=== PATIENT | female | born 1950 | race Caucasian/White ===

== ENCOUNTER → 2024-05-26 12:03 | Outpatient (REF) | payer OTHER, SELFPAY | LOC: WDC 12:03 | PROVIDERS: ATTENDING PHYSICIAN Obstetrics & Gynecology Gynecology; FAMILY PHYSICIAN Family Medicine | DX: Z12.31 Encounter for screening mammogram for malignant neoplasm of breast (principal); Z12.39 Encounter for other screening for malignant neoplasm of breast | CPT/HCPCS: 77063; 77067 ==

== ENCOUNTER 2024-06-19 01:41 | Emergency (ER) | payer OTHER, SELFPAY ==
[2024-06-19 01:44] VITALS: BP 188/86
[2024-06-19] MEDS: ZOFRAN 4 MG IV ×2 (02:02→03:36)
[2024-06-19] MEDS: DILAUDID 0.5 MG IV (02:02)
[2024-06-19] MEDS: NSS 500 IV ×2 (02:04→04:23)
--- NOTE | 2024-06-19 02:04 | ED.GENMED ---
History of Present Illness
General
Chief Complaint: Flank Pain
Source: patient and previous hospital records (Previous ED visit May 2021 for similar complaint at that time right flank pain related to right ureteric stone.)
Exam Limitations: none
Time Seen by Provider: 06/19/24 01:54
Nursing documentation reviewed up to this point in time: agreed with
History of Present Illness
History of Present Illness:
This is a 73-year-old woman who has history of kidney stones requiring lithotripsy 2022, 2008 and again 2015. She follows sporadically with Dr. Nicole. She complains of somewhat abrupt onset of moderate to severe left flank pain that began
around 10 PM tonight accompanied with nausea, intermittent episodes of vomiting. Left flank pain radiates to her left lower quadrant and feels very similar to previous episodes of renal colic.
Prior to tonight her last episode of renal colic was on the right side May 2021. Evaluated in this ED at that time, discharged home and passed the stone uneventfully. Prior to 2020, she encountered a left ureteric stone, was scheduled for
ureteroscopy and stone extraction but no stone noted on fluoroscopy and surgical case was canceled.
She denies fevers or chills, no dysuria urgency or hematuria. She denies diarrhea or constipation. She has not taken anything for discomfort.
Past History
Past History
ED Past Medical History: Other (Kidney stones; Migraine headaches, sciatica)
ED Past Surgical History: Cholecystectomy, Orthopedic (Right total hip replacement) and Urological (Lithotripsy 2002, 2008, 2015)
Social History
Tobacco: Non-smoker
Alcohol: Occasional
Drug: None
Personal:
Living: with family
Employment: Retired
Family History
Family History: Other (Noncontributory)
Phy Exam
Physical Exam
Physical Exam:
GENERAL: 73-year-old female appears her stated age, awake and alert, appears in moderate distress related to pain. Easily communicative. is accompanying.
EYE: anicteric
NECK: Supple, nontender, no meningismus, no significant adenopathy.
ENT: oral mucosa is moist. No rhinorrhea.
CARDIAC: Regular rate and rhythm. no murmur.
LUNGS: Clear breath sounds bilaterally, no acute respiratory distress, no wheezes/rales/rhonchi
ABDOMEN: Soft, nondistended, without focal tenderness, no r/g, moderate left CVA tenderness with percussion, normoactive BS.
NEUROLOGICAL: Alert and oriented x3, no focal neuro deficits. Gait is steady.
SKIN: Warm and dry, normal color, skin intact. No rash.
MUSCULOSKELETAL: No C/C/E. peripheral pulses are full and equal b/l. No palpable tenderness.
PSYCH: Normal and appropriate interaction.
Course
Orders/Labs/Results
Orders:
Orders
06/19/24 01:57
CT Abd/pel Without Iv Or Oral Urgent
Comment:
Reason For Exam: acute L flank pain w N/V
0.9% Sodium Chloride 500 ml [Nss] 500 ml IV BOLUS
HYDROmorphone [Dilaudid] 0.5 mg IV NOW STA
Ondansetron Injectable [Zofran] 4 mg IV NOW STA
06/19/24 02:01
Complete Blood Count/With Diff Urgent
Comprehensive Metabolic Panel Urgent
06/19/24 03:07
Electrocardiogram (*1) Urgent
Reason for Study: Chest Pain
EKG- Treatment ONCE
06/19/24 03:17
Mag Hydrox/Al Hydrox/Simeth [Maalox] 30 ml Phenobarb/Hyoscy/Atropine/Scop [] 10 ml Viscous Lidocaine 2% [Xylocaine Viscous Cup] 10 ml PO NOW
06/19/24 03:25
Mag Hydrox/Al Hydrox/Simeth [Maalox] 30 ml .ROUTE .STK-MED ONE
Phenobarb/Hyoscy/Atropine/Scop [] 10 ml .ROUTE .STK-MED ONE
Viscous Lidocaine 2% [Xylocaine Viscous Cup] 15 ml .ROUTE .STK-MED ONE
06/19/24 03:33
Ondansetron Injectable [Zofran] 4 mg .ROUTE .STK-MED ONE
Pantoprazole [Protonix IV] 40 mg .ROUTE .STK-MED ONE
06/19/24 03:35
Ondansetron Injectable [Zofran] 4 mg IV NOW STA
Pantoprazole [Protonix IV] 40 mg IV NOW STA
06/19/24 03:41
Ketorolac [Toradol] 15 mg .ROUTE .STK-MED ONE
06/19/24 03:42
Ketorolac [Toradol] 15 mg IV NOW STA
06/19/24 04:23
0.9% Sodium Chloride 500 ml [Nss] 500 ml IV BOLUS
06/19/24 05:41
Urinalysis Reflex To Culture Urgent
Date Specimen was Collected: 06/19/24
Time Specimen was Collected: 05:32
Urine Microscopic Reflex Cult Urgent
Urine Culture Urgent
LILA Source: U
Specimen Description:
Date Specimen was Collected: 06/19/24
Time Specimen was Collected: 05:32
Abnormal Lab Results
06/19/24 06/19/24
02:01 05:41
WBC 13.0 H 10^3/uL
(4.8-10.8)
Hct 36.7 L %
(37.0-47.0)
Abs Immat Gran (auto) 0.1 H 10^3/uL
(0-0.05)
Absolute Neuts (auto) 8.8 H 10^3/uL
(1.4-6.5)
Absolute Monos (auto) 0.9 H 10^3/uL
(0.1-0.6)
BUN 20 H mg/dl
(7-17)
Glucose 132 H mg/dl
(70-99)
Ur Occult Blood Reflex Trace A
(Negative)
Leukocyte Esterase Rfl 2+ A
(Negative)
Urine Bacteria (Reflex) Few A
(Negative)
06/19/24 02:01
06/19/24 02:01
Vital Signs
Initial and Last Documented VS:
Initial Vital Signs
Temp Pulse Resp BP Pulse Ox
98.2 F 77 26 188/86 96
06/19/24 01:44 06/19/24 01:44 06/19/24 01:44 06/19/24 01:44 06/19/24 01:44
Last Documented Vital Signs
Temp Pulse Resp BP Pulse Ox
98.2 F 65 20 143/70 92
06/19/24 01:44 06/19/24 06:00 06/19/24 06:00 06/19/24 06:00 06/19/24 06:00
MDM/Problems Addressed
Differential Diagnosis Includes:
Concern for renal colic on the left/ureteric stone on the left.
Less likely musculoskeletal pain, bowel obstruction, constipation.
Other consideration is UTI, pyelonephritis.
Will medicate for pain and nausea, initiate IV fluids, will check labs, urinalysis and will check CT abdomen pelvis.
Chronic conditions affecting care: Kidney disease (History of kidney stones. Acute kidney injury with creatinine of 1.2 noted May 2021 likely related to obstructing stone. Prior to that normal renal function. No follow-up labs available.)
*Radiology
Radiology exam reviewed: radiology read reviewed
*Pulse Oximetry
Patient hypoxic: no
*EKG
Interpreted by ED Provider?: Yes
Interpretation: normal
Comparison EKG: no comparison EKG present
Rate: normal
Rhythm: sinus
[place]: normal axis
Interval: normal interval
QRS Pattern: normal QRS
Ischemia: no ischemia
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
Rate: normal
Interpretation: normal
Rhythm: sinus
*Critical Care Note
Total Time (30-74mins, 75-104mins- exclusive of procedures): Not Applicable
Update Note
Update Note:
06/19/2024 0320 AM
Patient has had mild to moderate relief of left flank pain, moderate relief of nausea. She now notes lower substernal chest pressure as well as intermittent hiccuping that I suspect is acid reflux in nature. EKG is unremarkable.
Will trial a GI cocktail and continue to observe.
06/19/2024 0654 AM
Patient manage comfortable and pain-free after IV dose of Toradol.
No further chest discomfort.
CAT scan shows 5 mm stone mid left ureter with moderate left hydronephrosis.
Labs show mildly elevated white blood cell count. Normal creatinine 0.7.
Urinalysis shows few bacteria but only 6-10 WBCs. She has had no UTI symptoms and remains afebrile.
Will hold off on antibiotic.
Will plan for discharge to home with prompt follow-up with urology for recheck.
Will prescribe oxycodone as well as oral Toradol for as needed pain and Zofran for as needed nausea/vomiting.
Discussed importance of staying well-hydrated on a daily basis.
Return precautions discussed.
ED Attending Note
-
Portions of this chart may have been created with voice recognition software.� Occasional wrong word or��sound alike� substitutions may have occurred due to the inherent limitations of voice recognition software.
Discharge Plan
Departure
Patient Disposition: Home (Routine Discharge)
Date of Disposition: 06/19/24
Time of Disposition: 06:55
Patient with high blood pressure during this ER visit?: No
Condition: Good
Discharge Problem:
mid left ureteric stone
Instructions: Kidney Stones (DC), Flank Pain (DC)
Prescriptions:
New
ketorolac 10 mg tablet
10 mg PO QID PRN (Reason: pain) Qty: 20 0RF
oxycodone-acetaminophen [Percocet] 5-325 mg Tablet
1 tab PO Q6HPRN PRN (Reason: pain) Qty: 8 0RF
ondansetron 4 mg tablet,disintegrating
4 mg PO QID PRN (Reason: nausea and vomiting) Qty: 20 0RF
No Action
naproxen 250 MG tablet
250 mg PO BID PRN (Reason: pain)
ondansetron [Zofran ODT] 8 MG tablet,disintegrating
8 mg PO Q8 PRN (Reason: nausea) Qty: 12 0RF
oxycodone 5 MG tablet
5 mg PO Q6HPRN PRN (Reason: severe pain) Qty: 15 0RF
Referrals:
Lamberto Dhillon Jr., DO [Family Provider] -
Triston Nicole MD [Active] - Call in 1-3 days for appt
Interventions
Interventions:
*General Assessment Last Done: 06/19/24 01:44
*Neglect/Abuse Screening Last Done: 06/19/24 01:44
ED- Fall Risk Assessment Last Done: 06/19/24 01:44
*ED COVID-19 Vaccine History Last Done: 06/19/24 01:44
OD-Seumjl-Kimjjrktqa Assessment Last Done: 06/19/24 02:00
ED-Female Genitourinary Assessment Last Done: 06/19/24 02:00
Discharge Date and Time
Print Language: ROMANSH
[2024-06-19 02:06] VITALS: BMI 31.4
[2024-06-19 02:07] VITALS: BP 161/65
[2024-06-19 02:11] LABS: % Basophils 0.5 % (0-2); % Eosinophils 0.8 % (0-6); % Immature Granulocytes 0.5 % (0-0.5); % Lymphocytes 23.3 % (20.5-51.1); % Neutrophils 67.9 % (42.2-75.2); Absolute Basophils 0.1 10^3/uL (0-0.2); Absolute Eosinophils 0.1 10^3/uL (0-0.7); Absolute Immature Granulocytes 0.1 10^3/uL (0-0.05); Absolute Monocytes 0.9 10^3/uL (0.1-0.6); Absolute Neutrophils 8.8 10^3/uL (1.4-6.5); Hematocrit 36.7 % (37.0-47.0); Hemoglobin 12.7 g/dL (12.0-16.0); Mean Corp Hgb Conc. 34.6 g/dL (33.0-37.0); Mean Corpuscular Hgb 29.1 pg (27.0-31.0); Mean Corpuscular Volume 84.2 fL (81.0-99.0); Nucleated Red Blood Cells % 0 %; Platelet Count 372 10^3/uL (130-400); Red Blood Cell Count 4.36 10^6/uL (4.20-5.40); Red Cell Dist. Width 13.3 % (11.5-14.5)
[2024-06-19 02:35] LABS: ALT (SGPT) 24 U/L (0-35); AST (SGOT) 24 U/L (14-36); Albumin 4.1 g/dl (3.5-5.0); Alkaline Phosphatase 79 U/L (38-126); Blood Urea Nitrogen 20 mg/dl (7-17); Calcium 9.3 mg/dl (8.4-10.2); Carbon Dioxide 27 mmol/L (22-30); Chloride 105 mmol/L (98-107); Estimated Creatinine Clearance 63 ml/min; Glucose 132 mg/dl (70-99); Potassium 4.1 mmol/L (3.5-5.1); Sodium 139 mmol/L (135-145); Total Bilirubin 0.4 mg/dl (0.2-1.3); Total Protein 6.6 g/dl (6.3-8.2); eGFR > 60.00
[2024-06-19] MEDS: MAALOX 50 PO (03:27)
[2024-06-19] MEDS: PROTONIX IV 40 MG IV (03:35)
[2024-06-19] MEDS: TORADOL 15 MG IV (03:42)
[2024-06-19 04:21] VITALS: BP 143/65
[2024-06-19 05:00] VITALS: BP 143/64
[2024-06-19 05:47] LABS: Urine Albumin Negative (Neg - Trace); Urine Bilirubin Negative (Negative); Urine Character Clear (Clear); Urine Color Yellow; Urine Glucose Negative (Negative); Urine Ketone Negative (Negative); Urine Leukocyte 2+ (Negative); Urine Nitrite Negative (Negative); Urine Occult Blood Trace (Negative); Urine Specific Gravity 1.025 (<1.030); Urine Urobilinogen Negative (Neg - 1+)
[2024-06-19 06:00] VITALS: BP 143/70
[2024-06-19 06:32] LABS: Urine Bacteria Few (Negative); Urine Calcium Oxalate Crystals Present; Urine Mucus Few; Urine Red Blood Cell 0-2 /HPF (0-2); Urine Squamous Cell 0-2 /LPF (Few); Urine Uric Acid Crystals Present
[2024-06-19 07:00] VITALS: BP 146/83
== END 2024-06-19 07:26 | disposition home or self-care (01) ==
LOC: EMR 01:41
PROVIDERS: EMERGENCY PHYSICIAN Emergency Medicine; FAMILY PHYSICIAN Family Medicine
DX: R10.9 Unspecified abdominal pain (principal); R11.2 Nausea with vomiting, unspecified; N13.2 Hydronephrosis with renal and ureteral calculous obstruction; G43.909 Migraine, unspecified, not intractable, without status migrainosus; M54.30 Sciatica, unspecified side; Z87.442 Personal history of urinary calculi; Z90.49 Acquired absence of other specified parts of digestive tract; Z96.641 Presence of right artificial hip joint; Z88.1 Allergy status to other antibiotic agents; Z88.2 Allergy status to sulfonamides
CPT/HCPCS: 99284; 96374; 96375 ×3; 96361 ×3; 96376; 74176; 80053; 81003; 81015; 85025; 87086; 93005

== ENCOUNTER → 2024-06-27 09:51 | Outpatient (REF) | payer OTHER, SELFPAY | LOC: RAD 09:51 | PROVIDERS: ATTENDING PHYSICIAN Specialist; FAMILY PHYSICIAN Family Medicine | DX: N20.1 Calculus of ureter (principal) | CPT/HCPCS: 74018 ==

== ENCOUNTER 2024-07-31 16:18 | Outpatient (RCR) | payer OTHER, SELFPAY | END 2024-08-25 07:34 | disposition home or self-care (01) | LOC: RPT 16:18 | PROVIDERS: ATTENDING PHYSICIAN Physician Assistant; FAMILY PHYSICIAN Family Medicine | DX: R15.2 Fecal urgency (principal); R27.8 Other lack of coordination; R10.30 Lower abdominal pain, unspecified; Z73.6 Limitation of activities due to disability | CPT/HCPCS: 97163; 97530 ==

== ENCOUNTER 2025-03-18 06:17 | Day surgery (SDC) | payer OTHER, SELFPAY | END 2025-03-18 10:12 | disposition home or self-care (01) | LOC: GI 06:17 | PROVIDERS: ATTENDING PHYSICIAN Surgery | DX: Z12.11 Encounter for screening for malignant neoplasm of colon (principal); K62.5 Hemorrhage of anus and rectum; K64.9 Unspecified hemorrhoids; K57.30 Diverticulosis of large intestine without perforation or abscess without bleeding; D12.3 Benign neoplasm of transverse colon; D12.4 Benign neoplasm of descending colon; D12.5 Benign neoplasm of sigmoid colon; D12.8 Benign neoplasm of rectum; Z86.0100 Personal history of colon polyps, unspecified | CPT/HCPCS: 45385; 88305 ==

== ENCOUNTER → 2025-05-27 12:19 | Outpatient (REF) | payer OTHER, SELFPAY | LOC: WDC 12:19 | PROVIDERS: ATTENDING PHYSICIAN Obstetrics & Gynecology Gynecology; FAMILY PHYSICIAN Family Medicine | DX: Z12.31 Encounter for screening mammogram for malignant neoplasm of breast (principal) | CPT/HCPCS: 77063; 77067 ==

== ENCOUNTER → 2025-07-06 13:26 | Outpatient (REF) | payer OTHER, SELFPAY | LOC: RAD 13:26 | PROVIDERS: ATTENDING PHYSICIAN Podiatrist | DX: M20.41 Other hammer toe(s) (acquired), right foot (principal) | CPT/HCPCS: 73630 ==

== ENCOUNTER → 2025-07-07 14:21 | Outpatient (REF) | payer OTHER, SELFPAY | LOC: RAD 14:21 | PROVIDERS: ATTENDING PHYSICIAN Family Medicine | DX: M85.89 Other specified disorders of bone density and structure, multiple sites (principal); Z13.820 Encounter for screening for osteoporosis; Z78.0 Asymptomatic menopausal state | CPT/HCPCS: 77080 ==